=== PATIENT | female | born 1990 | race Caucasian/White ===

== ENCOUNTER 2025-04-07 00:25 | Emergency (ER) | payer OTHER ==
[~2025-04-07] VITALS: Ht 162.6 cm; Wt 82.0 kg
[2025-04-07 00:32] VITALS: TEMP 36.8; O2SAT 96
[2025-04-07] MEDS: ACETAMINOPHEN 325MG TABLET PO ONE (01:07)
[2025-04-07] MEDS ORDERED: ACET-2708 MT (01:16)
[2025-04-07 02:09] VITALS: BP 104/67; PULSE 86; RESP 16; O2SAT 97
== END 2025-04-07 02:13 | disposition home or self-care (01) ==
LOC: ER 00:25
DX: S93.402A Sprain of unspecified ligament of left ankle, initial encounter (principal); X50.1XXA Overexertion from prolonged static or awkward postures, initial encounter; Y93.89 Activity, other specified; Y92.89 Other specified places as the place of occurrence of the external cause; Y99.8 Other external cause status
CPT/HCPCS: 29515; 73590; 73610; 99284